=== PATIENT | female | born 1940 | race Caucasian/White ===

== ENCOUNTER 2017-04-18 19:13 | Observation (INO) | payer OTHER, MEDICARE ==
[2017-04-18 19:57] VITALS: BMI 30.1
--- NOTE | 2017-04-18 20:22 | PDOC ---
History of Present Illness - History of Present Illness Initial Comments: 04/18/17 20:23 Ms. Tolliver is a 76 yo female w/ pmh of urosepsis from obstructing stone, NIDDM , HTN, high cholesterol, on plavix (unknown reason) who presents post fall earlier today. Per patient she was sitting down in a chair while talking on her cell phone but unfortunately only half made it onto the seat. She slipped and fell backwards and onto her right side. Ms. Tolliver reports that as she fell down she hit the back of her head on a metal cabinet of some kind. She currently has pain at her head and on her sides with deep inspiration. The patient denies chest pain, shortness of breath, and dizziness. Denies fever , chills, nausea, vomit, diarrhea and constipation. Denies dysuria, frequency, urgency and hematuria. Allergies: Tetracyclines, Sulfa drugs <Jesús Orozco - Last Filed: 04/18/17 21:38> <Nusrat Sandy - Last Filed: 04/19/17 00:02> <Colleen Connell - Last Filed: 04/19/17 01:53> - General Chief Complaint: Injury Stated Complaint: FALL Time Seen by Provider: 04/18/17 20:22 Past History - Past Medical History Anemia: No Asthma: No Cancer: Yes (RIGHT PARTIAL BREAST MASECTOMY) Cardiac Disorders: No CVA: No COPD: No CHF: No Dementia: No Diabetes: Yes GI Disorders: No Disorders: No HTN: Yes Hypercholesterolemia: Yes Kidney Stones: Yes (s/p lithotripsy in 10/21) Liver Disease: No Seizures: No Thyroid Disease: No - Surgical History Abdominal Surgery: Yes Appendectomy: No Cardiac Surgery: No Cholecystectomy: No Lung Surgery: No Neurologic Surgery: No Orthopedic Surgery: No - Immunization History Immunization Up to Date: No - Suicide/Smoking/Psychosocial Hx Smoking History: Never smoked Have you smoked in the past 12 months: No Information on smoking cessation initiated: No Hx Alcohol Use: No Drug/Substance Use Hx: No Substance Use Type: None Hx Substance Use Treatment: No <Jesús Orozco - Last Filed: 04/18/17 21:38> <Nusrat Sandy - Last Filed: 04/19/17 00:02> <Colleen Connell - Last Filed: 04/19/17 01:53> - Past Medical History Allergies/Adverse Reactions: Allergies Allergy/AdvReac Type Severity Reaction Status Date / Time Tetracyclines Allergy Mild Hives Verified 04/18/17 19:52 Fish Containing Products Allergy Rash Verified 04/18/17 19:52 Sulfa (Sulfonamide Allergy Verified 04/18/17 19:52 Antibiotics) aspirin AdvReac "STOMACH Verified 04/18/17 19:52 BURNING" CLOVES Allergy Mild Hives Uncoded 04/18/17 19:52 Home Medications: Ambulatory Orders Clopidogrel Bisulfate [Clopidogrel] 75 mg PO DAILY 06/30/15 Fenofibric Acid [Trilipix -] 135 mg PO DAILY 06/30/15 Ferrous Sulfate [Feosol] 325 mg PO DAILY 06/30/15 Glimepiride 4 mg PO DAILY 06/30/15 Losartan Potassium [Cozaar -] 25 mg PO DAILY 06/30/15 Metoprolol Tartrate 25 mg PO BID 06/30/15 Ranitidine [Zantac -] 150 mg PO BID 06/30/15 Simvastatin [Zocor -] 40 mg PO DAILY 06/30/15 Sitagliptin Phosphate [Januvia -] 25 mg PO DAILY 06/30/15 Glimepiride [Amaryl -] 2 mg PO DAILY@1630 #30 tablet 07/04/15 Amoxicillin - [Amoxicillin 500mg Capsule -] 500 mg PO BID #10 capsule 03/24/17 Review of Systems - Review of Systems Comments:: 04/18/17 20:50 GENERAL/CONSTITUTIONAL: No fever or chills. No weakness. HEAD, EYES, EARS, NOSE AND THROAT: +Pain to back of head CARDIOVASCULAR: No chest pain or shortness of breath RESPIRATORY: +Current pain with deep inspiration and on left/right ribs GASTROINTESTINAL: No nausea, vomiting, diarrhea or constipation. GENITOURINARY: No dysuria, frequency, or change in urination. MUSCULOSKELETAL: No joint or muscle swelling or pain. No neck or back pain. SKIN: No rash NEUROLOGIC: No headache, vertigo, loss of consciousness, or change in strength/ sensation. ENDOCRINE: No increased thirst. No abnormal weight change HEMATOLOGIC/LYMPHATIC: No anemia, easy bleeding, or history of blood clots. ALLERGIC/IMMUNOLOGIC: No hives or skin allergy. <Jesús Orozco - Last Filed: 04/18/17 21:38> *Physical Exam - Vital Signs Last Vital Signs Temp Pulse Resp BP Pulse Ox 88 14 176/88 98 04/18/17 19:53 04/18/17 19:53 04/18/17 19:53 04/18/17 19:53 - Physical Exam Comments: 04/18/17 20:51 GENERAL: Awake, alert, and fully oriented, in no acute distress HEAD: +Traumatic laceration to back of head EYES: PERRLA, EOMI, sclera anicteric, conjunctiva clear ENT: Auricles normal inspection, hearing grossly normal, nares patent, oropharynx clear without exudates. Moist mucosa NECK: Normal ROM, supple, no lymphadenopathy, JVD, or masses LUNGS: +Lateral L/R ribs TTP. HEART: Regular rate and rhythm, normal S1 and S2, no murmurs, rubs or gallops, peripheral pulses normal and equal bilaterally. ABDOMEN: Soft, nontender, normoactive bowel sounds. No guarding, no rebound. No masses EXTREMITIES: Normal inspection, Normal range of motion, no edema. No clubbing or cyanosis. NEUROLOGICAL: Cranial nerves II through XII grossly intact. Normal speech, normal gait, no focal sensorimotor deficits SKIN: Warm, Dry, normal turgor, no rashes or lesions noted. <José AntonioaydeedeaJesús - Last Filed: 04/18/17 21:38> - Vital Signs Last Vital Signs Temp Pulse Resp BP Pulse Ox 88 14 176/88 98 04/18/17 19:53 04/18/17 19:53 04/18/17 19:53 04/18/17 19:53 <Nusrat Sandy - Last Filed: 04/19/17 00:02> - Vital Signs Last Vital Signs Temp Pulse Resp BP Pulse Ox 88 14 176/88 98 04/18/17 19:53 04/18/17 19:53 04/18/17 19:53 04/18/17 19:53 - Physical Exam Comments: 04/19/17 01:52 GENERAL: Well developed, well nourished. Awake and alert. No acute distress. HEENT: Occipital lobe 10 cm laceration - full thickness. Significant bleeding. Normocephalic, PERRLA, EOMI. No conjunctival pallor. Sclera are non-icteric. Moist mucous membranes. Oropharynx is clear. NECK: Supple. Full ROM. No JVD. Carotid pulses 2+ and symmetric, without bruits. No thyromegaly. No lymphadenopathy. CARDIOVASCULAR: Regular rate and rhythm. No murmurs, rubs, or gallops. Distal pulses are 2+ and symmetric. PULMONARY: No evidence of respiratory distress. Lungs clear to auscultation bilaterally. No wheezing, rales or rhonchi. ABDOMINAL: Soft. Non-tender. Non-distended. No rebound or guarding. No organomegaly. Normoactive bowel sounds. MUSCULOSKELETAL Normal range of motion at all joints. No bony deformities or tenderness. No CVA tenderness. EXTREMITIES: No cyanosis. No clubbing. No edema. No calf tenderness.NO defomities or tenderness SKIN: Occipital lobe 10 cm laceration - full thickness. Significant bleeding. Warm and dry. Normal capillary refill. No rashes. No jaundice. NEUROLOGICAL: No focal neuro deficits. Alert, awake, appropriate. Cranial nerves 2-12 intact. No deficits to light touch and temperature in face, upper extremities and lower extremities. No motor deficits in the in face, upper extremities and lower extremities. Normoreflexic in the upper and lower extremities. Normal speech. Toes are down-going bilaterally. Gait is normal without ataxia. PSYCHIATRIC: Cooperative. Good eye contact. Appropriate mood and affect. <Colleen Connell - Last Filed: 04/19/17 01:53> ED Treatment Course - LABORATORY CBC & Chemistry Diagram: 04/18/17 21:35 04/18/17 21:35 - ADDITIONAL ORDERS Additional order review: Laboratory Results 04/18/17 04/18/17 04/18/17 21:35 21:35 21:30 PT with INR 10.90 INR 0.96 D PTT (Actin FS) 32.9 Sodium 137 Potassium 4.3 Chloride 104 Carbon Dioxide 25 Anion Gap 8 BUN 33 H D Creatinine 1.1 H Creat Clearance w eGFR 48.55 Random Glucose 186 H D Calcium 8.9 Total Bilirubin 0.3 D AST 13 L D ALT 17 D Alkaline Phosphatase 92 Total Protein 8.0 Albumin 3.9 D Blood Type A POSITIVE Antibody Screen Negative 04/18/17 21:35 RBC 4.76 MCV 83.4 MCHC 33.1 RDW 14.4 MPV 8.9 Neutrophils % 74.2 D Lymphocytes % 17.4 D Monocytes % 5.2 Eosinophils % 2.6 Basophils % 0.6 - Medications Given in the ED: ED Medications Discontinued Medications Generic Name Dose Route Start Last Admin Trade Name Celeste PRN Reason Stop Dose Admin Ibuprofen 800 mg 04/18/17 20:36 04/18/17 21:34 Motrin - PO 04/18/17 20:37 800 mg ONCE ONE Administration <DuNusrat Meeta - Last Filed: 04/19/17 00:02> - LABORATORY CBC & Chemistry Diagram: 04/18/17 21:35 04/18/17 21:35 - ADDITIONAL ORDERS Additional order review: Laboratory Results 04/18/17 04/18/17 04/18/17 21:35 21:35 21:30 PT with INR 10.90 INR 0.96 D PTT (Actin FS) 32.9 Sodium 137 Potassium 4.3 Chloride 104 Carbon Dioxide 25 Anion Gap 8 BUN 33 H D Creatinine 1.1 H Creat Clearance w eGFR 48.55 Random Glucose 186 H D Calcium 8.9 Total Bilirubin 0.3 D AST 13 L D ALT 17 D Alkaline Phosphatase 92 Total Protein 8.0 Albumin 3.9 D Blood Type A POSITIVE Antibody Screen Negative 04/18/17 21:35 RBC 4.76 MCV 83.4 MCHC 33.1 RDW 14.4 MPV 8.9 Neutrophils % 74.2 D Lymphocytes % 17.4 D Monocytes % 5.2 Eosinophils % 2.6 Basophils % 0.6 - RADIOLOGY Radiograph Interpretation: 04/18/17 23:55 CT Head Reported by: Doug Napier Impression: No acute intracranial hemmorhage mass effect or midline shift. Moderate right parietal scalp soft tissue swelling and subcutaneous hematoma at the vertex and right parietal scalp skin laceration and introduced air bubbles. Mild non- specific periventricular predominant low density throughout the deep white matter is most likely due to mild small vessel ischemic white matter disease. - Medications Given in the ED: ED Medications Discontinued Medications Generic Name Dose Route Start Last Admin Trade Name Celeste PRN Reason Stop Dose Admin Ibuprofen 800 mg 04/18/17 20:36 04/18/17 21:34 Motrin - PO 04/18/17 20:37 800 mg ONCE ONE Administration <Colleen Connell - Last Filed: 04/19/17 01:53> Medical Decision Making - Medical Decision Making 04/18/17 20:52 Ms. Tolliver is a 76 yo female s/p fall with head injury earlier today. 04/18/17 21:[address] ordered to r/o acute bleed. Chest/Pelvis to r/o other fall sequelae. Patient signed out to Dr. Sandy for further care. <Jesús Orozco - Last Filed: 04/18/17 21:38> *DC/Admit/Observation/Transfer <Jesús Orozco - Last Filed: 04/18/17 21:38> - Discharge Dispostion Admit: Yes <Nusrat Sandy - Last Filed: 04/19/17 00:02> <Colleen Connell - Last Filed: 04/19/17 01:53> Diagnosis at time of Disposition: Fall Qualifiers: Encounter type: initial encounter Qualified Code(s): W19.XXXA - Unspecified fall, initial encounter Headache, post-traumatic, acute Qualifiers: Intractability: not intractable Qualified Code(s): G44.319 - Acute post- traumatic headache, not intractable Scalp laceration Qualifiers: Encounter type: initial encounter Qualified Code(s): S01.01XA - Laceration without foreign body of scalp, initial encounter
[2017-04-18] MEDS ORDERED: IBUPROFEN 400 MG TABLET (FP) PO ONE ×2 (20:36→21:19)
[2017-04-18 21:45] LABS: BASO % 0.6 % (0-2.0); EOS % 2.6 % (0-4.5); HEMATOCRIT 39.7 % (32.4-45.2); HEMOGLOBIN 13.1 GM/dL (10.7-15.3); LYMPH % 17.4 % (8-40); MCH 27.6 pg (25.7-33.7); MCHC 33.1 g/dl (32.0-36.0); MEAN CELL VOLUME 83.4 fl (80-96); MEAN PLT VOLUME 8.9 fl (7.5-11.1); MONO % 5.2 % (3.8-10.2); NEUT % 74.2 % (42.8-82.8); PLATELET COUNT 244 K/MM3 (134-434); RBC 4.76 M/mm3 (3.60-5.2); RDW 14.4 % (11.6-15.6); WHITE BLOOD COUNT 8.6 K/mm3 (4.0-10.0)
[2017-04-18 22:03] LABS: INR 0.96 (0.82-1.09); PROTHROMBIN TIME (PATIENT) 10.9 SEC (9.98-11.88)
[2017-04-18 22:06] LABS: ACTIVATED PTT 32.9 SECONDS (26.9-34.4)
[2017-04-18 22:15] LABS: ALBUMIN 3.9 g/dl (3.4-5.0); ANION GAP 8 (8-16); BLOOD UREA NITROGEN 33 mg/dL (7-18); CALCIUM 8.9 mg/dL (8.5-10.1); CHLORIDE 104 mmol/L (98-107); CO2 25 mmol/L (21-32); GLUCOSE,RANDOM 186 mg/dL (74-106); POTASSIUM 4.3 mmol/L (3.5-5.1); SGOT/AST 13 U/L (15-37); SGPT/ALT 17 U/L (12-78); SODIUM 137 mmol/L (136-145)
[2017-04-18 22:18] LABS: ALK PHOS 92 U/L (45-117); BILIRUBIN,TOTAL 0.3 mg/dL (0.2-1.0); CREATININE 1.1 mg/dL (0.55-1.02)
--- NOTE | 2017-04-19 00:06 | PDOC ---
Attending Attestation - Resident Resident Name: José AntonioaydeedeaJesús - ED Attending Attestation I have performed the following: I have examined & evaluated the patient, The case was reviewed & discussed with the resident, I agree w/resident's findings & plan, Exceptions are as noted - HPI HPI: 04/19/17 00:06 76 yo female fall off a chair at home and sustained 10 cm occiptal laceration.pt takes plavix . she was talking on her cellphone and did not sit fully on her chair and it moved and she fell backwards hitting the back of her head on a door handle 04/19/17 03:21 - Physicial Exam PE: 04/19/17 00:09 76 yo sustained head trauma with scalp laceration , she is on plavix 04/19/17 03:25 HEAD extensive occipital 10 cm laceration ,full thickness EYES mulu eomi no meredith signs ears no hemotympanum NECK no cervical vertebral tenderness appreciated cvs [id number] lungs cta b/l abd nontender ext no deformities neuro axox3,no gross focal neuro deficits - Medical Decision Making 04/19/17 03:27 IMP closed head trauma on anticoags admit for repeat ct scan head
--- NOTE | 2017-04-19 00:09 | PN ---
Teaching Attending Note Name of Resident: Fredy Potts ATTENDING PHYSICIAN STATEMENT I saw and evaluated the patient. I reviewed the resident's note and discussed the case with the resident. I agree with the resident's findings and plan as documented. SUBJECTIVE: 76 F with pmhx of NIDDM, HTN, HLD, breast ca, renal stones with prior urosepsis , on Plavix who presents post mechanical fall. She was going to sit down when she slipped and fell unto her right side and hit her head on a metal cabinet. Does note pain at site of head lac. OBJECTIVE: Physical: VS: Vital Signs Period Temp Pulse Resp BP Sys/Powers Pulse Ox Last 24 Hr 88 14 176/88 98 GEN:NAD, Resting in bed, AA0 X3 HEENT: 8 cm head laceration near occiput, PERRL, Throat withour erythema or exudates CARD: RRR S1, S2 RESP: CTAB ABD: BSx4, NTD to palpation EXT: - C/C/E CBCD WBC 8.6 K/mm3 (4.0-10.0) D 04/18/17 21:35 RBC 4.76 M/mm3 (3.60-5.2) 04/18/17 21:35 Hgb 13.1 GM/dL (10.7-15.3) D 04/18/17 21:35 Hct 39.7 % (32.4-45.2) D 04/18/17 21:35 MCV 83.4 fl (80-96) 04/18/17 21:35 MCHC 33.1 g/dl (32.0-36.0) 04/18/17 21:35 RDW 14.4 % (11.6-15.6) 04/18/17 21:35 Plt Count 244 K/MM3 (134-434) D 04/18/17 21:35 MPV 8.9 fl (7.5-11.1) 04/18/17 21:35 CMP Sodium 137 mmol/L (136-145) 04/18/17 21:35 Potassium 4.3 mmol/L (3.5-5.1) 04/18/17 21:35 Chloride 104 mmol/L (98-107) 04/18/17 21:35 Carbon Dioxide 25 mmol/L (21-32) 04/18/17 21:35 Anion Gap 8 (8-16) 04/18/17 21:35 BUN 33 mg/dL (7-18) H D 04/18/17 21:35 Creatinine 1.1 mg/dL (0.55-1.02) H 04/18/17 21:35 Creat Clearance w eGFR 48.55 (>60) 04/18/17 21:35 Random Glucose 186 mg/dL (74-106) H D 04/18/17 21:35 Calcium 8.9 mg/dL (8.5-10.1) 04/18/17 21:35 Total Bilirubin 0.3 mg/dL (0.2-1.0) D 04/18/17 21:35 AST 13 U/L (15-37) L D 04/18/17 21:35 ALT 17 U/L (12-78) D 04/18/17 21:35 Alkaline Phosphatase 92 U/L (45-117) 04/18/17 21:35 Total Protein 8.0 g/dl (6.4-8.2) 04/18/17 21:35 Albumin 3.9 g/dl (3.4-5.0) D 04/18/17 21:35 Home Medications Medication Instructions Recorded Clopidogrel Bisulfate [Clopidogrel] 75 mg PO DAILY 06/30/15 Fenofibric Acid [Trilipix -] 135 mg PO DAILY 06/30/15 Ferrous Sulfate [Feosol] 325 mg PO DAILY 06/30/15 Glimepiride 4 mg PO DAILY 06/30/15 Losartan Potassium [Cozaar -] 25 mg PO DAILY 06/30/15 Metoprolol Tartrate 25 mg PO BID 06/30/15 Ranitidine [Zantac -] 150 mg PO BID 06/30/15 Simvastatin [Zocor -] 40 mg PO DAILY 06/30/15 Sitagliptin Phosphate [Januvia -] 25 mg PO DAILY 06/30/15 Glimepiride [Amaryl -] 2 mg PO DAILY@1630 #30 tablet 07/04/15 Amoxicillin - [Amoxicillin 500mg 500 mg PO BID #10 capsule 03/24/17 Capsule -] 04/18/17 23:55 CT Head Reported by: Doug Napier Impression: No acute intracranial hemmorhage mass effect or midline shift. Moderate right parietal scalp soft tissue swelling adn subcutaneous hematoma at the vertex and right parietal scalp skin laceration and introduced air bubbles ASSESSMENT AND PLAN: 76 F with pmhx of NIDDM, HTN, HLD, breast ca, renal stones with prior urosepsis , on Plavix who presents post mechanical fall 1.) Mechanical Fall with Head Laceration - On Plavix - Repeat CT Head in 24 hrs- Hold Plavix until repeat - Coags - Type & Screen - Repeat CBC in AM 2.) DM - FS - RAISS 3.) HTN - C/W home meds 4.) CKD - Monitor CR - Avoid Neohrotoxins 5.) Dvt Ppx - SCDS Place in Obs
--- NOTE | 2017-04-19 00:16 | HP ---
CHIEF COMPLAINT: fall on her back PCP: HISTORY OF PRESENT ILLNESS: Ms. Tolliver is a 76 yo female w/ pmh of urosepsis from obstructing stone, NIDDM , HTN, high cholesterol, on plavix (pt allergic to ASA, placed on plavix for possible stroke prevention) who presents s/p mechanical fall earlier today. She reports she was at home and talking on cell phone; she slipped when attempting to sit on the chair and fell, hitting her head on the handle of the armoire. She states she had sudden severe headache post-fall that lasted for approximately 1 hr but resolved upon time of examination (1:00 AM). She reports back pain that limited her movements right after the fall but at time of examination, she denied feeling pain. She has hx of multiple falls, fracture of leg, fracture in arm as child, fracture of nose 3 weeks ago. She attributes this to "doing things too fast and I like to multitask". She denies light headness prior or post fall, dizziness, blurry vision, loss of consciousness, nausea, vomiting, chest pain. ER course was notable for: (1) CT head - negative for acute pathology (2)CXR - negative for acute pathology (3) EKG - NSR (4)BUN/Cr 33/1.1 (5) Hip/Pelvis X ray - pending reading Recent Travel:Denies PAST MEDICAL HISTORY: urosepsis from obstructing stone, NIDDM, HTN, high cholesterol, on plavix ( stroke prevention, allergic to ASA) PAST SURGICAL HISTORY: Lithotripsy 10/21, right partial mastectomy 2/2 breast cancer; x1 Social History: Smoking: denies Alcohol:denies Drugs: denies Family History: mother has hx of multiple cancers - breast ca with mets to brain ; father hx of some unspecified heart condition. Multiple family members have hx carcinoma. Allergies Tetracyclines Allergy (Mild, Verified 04/18/17 19:52) Hives Fish Containing Products Allergy (Verified 04/18/17 19:52) Rash Sulfa (Sulfonamide Antibiotics) Allergy (Verified 04/18/17 19:52) Altered mental status aspirin Adverse Reaction (Verified 04/18/17 19:52) "STOMACH BURNING" CLOVES Allergy (Mild, Uncoded 04/18/17 19:52) Hives HOME MEDICATIONS: Home Medications Medication Instructions Recorded Clopidogrel Bisulfate [Clopidogrel] 75 mg PO DAILY 06/30/15 Fenofibric Acid [Trilipix -] 135 mg PO DAILY 06/30/15 Ferrous Sulfate [Feosol] 325 mg PO DAILY 06/30/15 Glimepiride 4 mg PO DAILY 06/30/15 Losartan Potassium [Cozaar -] 25 mg PO DAILY 06/30/15 Metoprolol Tartrate 25 mg PO BID 06/30/15 Ranitidine [Zantac -] 150 mg PO BID 06/30/15 Simvastatin [Zocor -] 40 mg PO DAILY 06/30/15 Sitagliptin Phosphate [Januvia -] 25 mg PO DAILY 06/30/15 Glimepiride [Amaryl -] 2 mg PO DAILY@1630 #30 tablet 07/04/15 Amoxicillin - [Amoxicillin 500mg 500 mg PO BID #10 capsule 03/24/17 Capsule -] REVIEW OF SYSTEMS CONSTITUTIONAL: Absent: fever, chills, diaphoresis, generalized weakness, malaise, loss of appetite, weight change HEENT: Absent: rhinorrhea, nasal congestion, throat pain, throat swelling, difficulty swallowing, mouth swelling, ear pain, eye pain, visual changes CARDIOVASCULAR: Absent: chest pain, syncope, palpitations, irregular heart rate, lightheadedness , peripheral edema RESPIRATORY: Absent: cough, shortness of breath, dyspnea with exertion, orthopnea, wheezing, stridor, hemoptysis GASTROINTESTINAL: Absent: abdominal pain, abdominal distension, nausea, vomiting, diarrhea, constipation, melena, hematochezia GENITOURINARY: Absent: dysuria, frequency, urgency, hesitancy, hematuria, flank pain, genital pain MUSCULOSKELETAL: Absent: myalgia, arthralgia, joint swelling, back pain, neck pain SKIN: Absent: rash, itching, pallor HEMATOLOGIC/IMMUNOLOGIC: Absent: easy bleeding, easy bruising, lymphadenopathy, frequent infections ENDOCRINE: Absent: unexplained weight gain, unexplained weight loss, heat intolerance, cold intolerance NEUROLOGIC: Absent: headache, focal weakness or paresthesias, dizziness, unsteady gait, seizure, mental status changes, bladder or bowel incontinence PSYCHIATRIC: Absent: anxiety, depression, suicidal or homicidal ideation, hallucinations. PHYSICAL EXAMINATION Vital Signs - 24 hr 04/18/17 19:53 Pulse Rate 88 Respiratory 14 Rate Blood Pressure 176/88 O2 Sat by Pulse 98 Oximetry (%) GENERAL: Awake, alert, and fully oriented, in no acute distress. HEAD: Deep laceration 12 cm length noted on R parietal scalp with SQ hematoma. EYES: Pupils equal, round and reactive to light, extraocular movements intact, sclera anicteric, conjunctiva clear. No lid lag. EARS, NOSE, THROAT: Ears normal, nares patent, oropharynx clear without exudates. Moist mucous membranes. NECK: Normal range of motion, supple without lymphadenopathy, JVD, or masses. LUNGS: Breath sounds equal, clear to auscultation bilaterally. No wheezes, and no crackles. No accessory muscle use. HEART: Regular rate and rhythm, normal S1 and S2 without murmur, rub or gallop. ABDOMEN: Soft, nontender, not distended, normoactive bowel sounds, no guarding, no rebound, no masses. No hepatomegaly or splenomegaly. MUSCULOSKELETAL: Normal range of motion at all joints. No bony deformities or tenderness. No CVA tenderness. UPPER EXTREMITIES: 2+ pulses, warm, well-perfused. No cyanosis. No clubbing. No peripheral edema. LOWER EXTREMITIES: 2+ pulses, warm, well-perfused. No calf tenderness. No peripheral edema. NEUROLOGICAL: Cranial nerves II-XII intact. Normal speech. Normal gait. PSYCHIATRIC: Cooperative. Good eye contact. Appropriate mood and affect. SKIN: Warm, dry, normal turgor, no rashes or lesions noted, normal capillary refill. Laboratory Results - last 24 hr 04/18/17 04/18/17 04/18/17 21:30 21:35 21:35 WBC 8.6 D RBC 4.76 Hgb 13.1 D Hct 39.7 D MCV 83.4 MCH 27.6 MCHC 33.1 RDW 14.4 Plt Count 244 D MPV 8.9 Neutrophils % 74.2 D Lymphocytes % 17.4 D Monocytes % 5.2 Eosinophils % 2.6 Basophils % 0.6 PT with INR 10.90 INR 0.96 D PTT (Actin FS) 32.9 Sodium 137 Potassium 4.3 Chloride 104 Carbon Dioxide 25 Anion Gap 8 BUN 33 H D Creatinine 1.1 H Creat Clearance w eGFR 48.55 Random Glucose 186 H D Calcium 8.9 Total Bilirubin 0.3 D AST 13 L D ALT 17 D Alkaline Phosphatase 92 Total Protein 8.0 Albumin 3.9 D Blood Type Antibody Screen 04/18/17 21:35 WBC RBC Hgb Hct MCV MCH MCHC RDW Plt Count MPV Neutrophils % Lymphocytes % Monocytes % Eosinophils % Basophils % PT with INR INR PTT (Actin FS) Sodium Potassium Chloride Carbon Dioxide Anion Gap BUN Creatinine Creat Clearance w eGFR Random Glucose Calcium Total Bilirubin AST ALT Alkaline Phosphatase Total Protein Albumin Blood Type A POSITIVE Antibody Screen Negative CBC, BMP 04/18/17 21:35 04/18/17 21:35 CT Head : Impression: No acute intracranial hemmorhage mass effect or midline shift. Moderate right parietal scalp soft tissue swelling and subcutaneous hematoma at the vertex and right parietal scalp skin laceration and introduced air bubbles. ASSESSMENT/PLAN: Ms. Tolliver is a 76 yo female w/ pmh of urosepsis from obstructing stone, NIDDM , HTN, high cholesterol, on plavix (unknown reason) who presents post fall earlier today. # head trauma with scalp laceration s/p mechanical fall * Head CT - negative intracranial pathology * repeat CT scan in 24 hrs * Hold Clopidogrel * IV fluids NS 1000mls @100cc/hr * ibuprofen PRN pain * type and screen, PT/PTT ordered * stitches - done in ED; monitor for bleeding # DEBBY * Likely pre renal from low oral intake * IV fluids NS 1000mls @100cc/hr * Urine lytes * Avoid nephrotoxic agents * Trend BUN /cr # NIDDM * Hold home meds * ISS * BGM ACHS * Diabetic diet # HTN * continue home meds * metoprolol 25 mg BID * elevated BP on admission likely 2/2 pain # HLD : * continue home meds Lipitor 40 po daily # FEN * fluids NS 1000mls @100cc/hr * electrolytes: DEBBY on admission; monitor for resolution * Nutrition: Diabetic low Na diet # Proph * DVT: SCDS Both legs # Admit * obs * fall precautions * full code Visit type - Emergency Visit Emergency Visit: Yes ED Registration Date: 04/19/17 Care time: The patient presented to the Emergency Department on the above date and was hospitalized for further evaluation of their emergent condition. - New Patient This patient is new to me today: Yes Date on this admission: 04/19/17 - Critical Care Critical Care patient: No
[2017-04-19] MEDS ORDERED: LIDOCAINE HCL 2% (20ML MULTI-DOSE VIAL) NR ONE ×2 (01:10→01:28)
[2017-04-19] MEDS ORDERED: ACETAMINOPHEN 325 MG TABLET (FP) PO PRN (01:38)
[2017-04-19] MEDS ORDERED: DIPHTH,PERTUSS(ACELL),TET 0.5 ML DISP.SYRIN IM ONE (01:49)
[2017-04-19] MEDS ORDERED: CEFAZOLIN 1 GM in DEXTROSE 5%-WATER - 50 ML IVPB ONE (01:51)
--- NOTE | 2017-04-19 01:55 | PDOC ---
Suture Removal/Wound Check HPI - History of Present Illness Chief Complaint: Injury Stated Complaint: FALL Time Seen by Provider: 04/18/17 20:22 Past History - Past Medical History Allergies/Adverse Reactions: Allergies Allergy/AdvReac Type Severity Reaction Status Date / Time Tetracyclines Allergy Mild Hives Verified 04/18/17 19:52 Fish Containing Products Allergy Rash Verified 04/18/17 19:52 Sulfa (Sulfonamide Allergy Verified 04/18/17 19:52 Antibiotics) aspirin AdvReac "STOMACH Verified 04/18/17 19:52 BURNING" CLOVES Allergy Mild Hives Uncoded 04/18/17 19:52 Home Medications: Ambulatory Orders Clopidogrel Bisulfate [Clopidogrel] 75 mg PO DAILY 06/30/15 Fenofibric Acid [Trilipix -] 135 mg PO DAILY 06/30/15 Ferrous Sulfate [Feosol] 325 mg PO DAILY 06/30/15 Glimepiride 4 mg PO DAILY 06/30/15 Losartan Potassium [Cozaar -] 25 mg PO DAILY 06/30/15 Metoprolol Tartrate 25 mg PO BID 06/30/15 Ranitidine [Zantac -] 150 mg PO BID 06/30/15 Simvastatin [Zocor -] 40 mg PO DAILY 06/30/15 Sitagliptin Phosphate [Januvia -] 25 mg PO DAILY 06/30/15 Glimepiride [Amaryl -] 2 mg PO DAILY@1630 #30 tablet 07/04/15 Amoxicillin - [Amoxicillin 500mg Capsule -] 500 mg PO BID #10 capsule 03/24/17 Anemia: No Asthma: No Cancer: Yes (RIGHT PARTIAL BREAST MASECTOMY) Cardiac Disorders: No CVA: No COPD: No CHF: No DVT: No Dementia: No Diabetes: Yes Dialysis: No GI Disorders: No Disorders: No HTN: Yes Hypercholesterolemia: Yes Kidney Stones: Yes (s/p lithotripsy in 10/21) Liver Disease: No Psychiatric Problems: No Seizures: No Thyroid Disease: No Lung CA: No Other medical history: Right Breast CA - Surgical History Abdominal Surgery: Yes Appendectomy: No Cardiac Surgery: No Cholecystectomy: No Lung Surgery: No Neurologic Surgery: No Orthopedic Surgery: No - Immunization History Immunization Up to Date: No - Suicide/Smoking/Psychosocial Hx Smoking History: Never smoked Have you smoked in the past 12 months: No Information on smoking cessation initiated: No Hx Alcohol Use: No Drug/Substance Use Hx: No Substance Use Type: None Hx Substance Use Treatment: No Procedures - Laceration/Wound Repair Occipital Wound Length: 7.6 to 12.5 cm Wound Explored: no foreign body present Wound's Depth, Shape: into muscle, flap, contused tissue Irrigated w/ Saline: Yes Betadine Prep: No Anesthesia: 1% Lidocaine (12) Amount of Anesthetic (ccs): 12 Wound Debrided: minimal Wound Repaired With: Sutures Suture Size/Type: 3:0, nylon Number of Sutures: 14 Sterile Dressing Applied: No Splint Applied: No Sling Applied: No *DC/Admit/Observation/Transfer Diagnosis at time of Disposition: Fall Qualifiers: Encounter type: initial encounter Qualified Code(s): W19.XXXA - Unspecified fall, initial encounter Headache, post-traumatic, acute Qualifiers: Intractability: not intractable Qualified Code(s): G44.319 - Acute post- traumatic headache, not intractable Scalp laceration Qualifiers: Encounter type: initial encounter Qualified Code(s): S01.01XA - Laceration without foreign body of scalp, initial encounter - Discharge Dispostion Decision to Admit order Date/Time: Decision to Admit Order Category Date Time Status Decision to Admit to Hospital Routine Admission 04/19/17 00:04 Active - Referrals - Patient Instructions - Post Discharge Activity
[2017-04-19] MEDS ORDERED: CEFAZOLIN 1 GM/D5W 1 GM/50 ML BAG ONE (02:09)
[2017-04-19] MEDS: SODIUM CHLORIDE 1,000 ML IV SCH (02:29)
[2017-04-19] MEDS: METOPROLOL TARTRATE 25 MG TABLET (FP) PO SCH ×3 (02:29→23:26)
[2017-04-19] MEDS: RANITIDINE HCL 150 MG TABLET (FP) PO SCH ×3 (02:29→23:26)
[2017-04-19] MEDS ORDERED: BACITRACIN 0.9 GM PACKET ONE (03:52)
[2017-04-19] MEDS: INSULIN SLIDING SCALE (NOVOLOG) 1 VIAL SQ SCH ×5 (09:02→23:36)
[2017-04-19] MEDS ORDERED: INSULIN (NOVOLOG) ASPART 100 UNITS/ML 10ML VIAL ONE ×2 (09:04→23:29)
--- NOTE | 2017-04-19 09:35 | EKG ---
Test Reason : Blood Pressure : / mmHG Vent. Rate : 094 BPM Atrial Rate : 094 BPM P-R Int : 194 ms QRS Dur : 082 ms QT Int : 352 ms P-R-T Axes : 067 -16 063 degrees QTc Int : 440 ms NORMAL SINUS RHYTHM POSSIBLE LEFT ATRIAL ENLARGEMENT BORDERLINE ECG WHEN COMPARED WITH ECG OF 30-JUN-2015 17:25, PREMATURE VENTRICULAR COMPLEXES ARE NO LONGER PRESENT Confirmed by INGE MARISCAL, SHARIFA ([id number]) on 04/19/2017 9:34:41 AM Referred By: Confirmed By:SHARIFA ALCAZAR MD
[2017-04-19 09:56] LABS: BASO % 0.4 % (0-2.0); EOS % 2.6 % (0-4.5); HEMATOCRIT 36.9 % (32.4-45.2); HEMOGLOBIN 11.9 GM/dL (10.7-15.3); LYMPH % 15.1 % (8-40); MCHC 32.2 g/dl (32.0-36.0); MEAN CELL VOLUME 83.8 fl (80-96); MEAN PLT VOLUME 8.5 fl (7.5-11.1); MONO % 7.1 % (3.8-10.2); NEUT % 74.8 % (42.8-82.8); PLATELET COUNT 198 K/MM3 (134-434); RBC 4.41 M/mm3 (3.60-5.2); RDW 14.4 % (11.6-15.6); WHITE BLOOD COUNT 8.4 K/mm3 (4.0-10.0)
[2017-04-19 10:16] LABS: ALBUMIN 3.5 g/dl (3.4-5.0); ALK PHOS 84 U/L (45-117); ANION GAP 8 (8-16); BILIRUBIN,TOTAL 0.4 mg/dL (0.2-1.0); BLOOD UREA NITROGEN 33 mg/dL (7-18); CALCIUM 8.7 mg/dL (8.5-10.1); CHLORIDE 105 mmol/L (98-107); CO2 24 mmol/L (21-32); CREATININE 1.3 mg/dL (0.55-1.02); GLUCOSE,RANDOM 265 mg/dL (74-106); POTASSIUM 4.5 mmol/L (3.5-5.1); SGOT/AST 7 U/L (15-37); SGPT/ALT 14 U/L (12-78); SODIUM 137 mmol/L (136-145); TOT PROT 7.2 g/dl (6.4-8.2)
[2017-04-19 10:20] LABS: INR 1.02 (0.82-1.09); PROTHROMBIN TIME (PATIENT) 11.5 SEC (9.98-11.88)
[2017-04-19 10:24] LABS: ACTIVATED PTT 30.5 SECONDS (26.9-34.4)
--- NOTE | 2017-04-19 10:28 | PN ---
Progress Note, Physician Chief Complaint: Ms Tolliver says she is feeling better today. Still with some right sided chest wall pain when moving. No sob or n/v. - Current Medication List Current Medications: Active Medications Acetaminophen (Tylenol -) 650 mg PO Q6H PRN PRN Reason: PAIN Atorvastatin Calcium (Lipitor -) 20 mg PO HS [facility] Fenofibric Acid (Trilipix -) 135 mg PO DAILY [facility] Ferrous Sulfate (Feosol -) 325 mg PO DAILY [facility] Sodium Chloride (Normal Saline -) 1,000 mls @ 100 mls/hr IV ASDIR [facility] Last Admin: 04/19/17 02:29 Dose: 100 mls/hr Insulin Aspart (Novolog Vial Sliding Scale -) 1 vial SQ ACHS [facility] PRN Reason: Protocol Last Admin: 04/19/17 09:09 Dose: 2 units Losartan Potassium (Cozaar -) 25 mg PO DAILY [facility] Metoprolol Tartrate (Lopressor -) 25 mg PO BID [facility] Last Admin: 04/19/17 02:29 Dose: 25 mg Ranitidine HCl (Zantac -) 150 mg PO BID [facility] Last Admin: 04/19/17 02:29 Dose: 150 mg - Objective Vital Signs: Vital Signs Temperature 36.9 C 04/19/17 06:58 Pulse Rate 68 04/19/17 06:58 Respiratory Rate 18 04/19/17 06:58 Blood Pressure 159/86 04/19/17 06:58 O2 Sat by Pulse Oximetry (%) 99 04/19/17 06:58 Constitutional: Yes: Well Nourished, No Distress, Calm Cardiovascular: Yes: Regular Rate and Rhythm. No: Gallop, Murmur, Rub Respiratory: Yes: Regular, CTA Bilaterally. No: Rales, Rhonchi, Wheezes Gastrointestinal: Yes: Normal Bowel Sounds, Soft. No: Distention, Tenderness Extremities: Yes: WNL Edema: No Labs: CBC, BMP 04/19/17 09:46 04/19/17 09:46 INR, PTT INR 0.96 (0.82-1.09) D 04/18/17 21:30 Problem List - Problems (1) Head trauma Assessment/Plan: -secondary to fall -pain resolved -repeat head CT [address] -if no bleed, discharge in am Code(s): S09.90XA - UNSPECIFIED INJURY OF HEAD, INITIAL ENCOUNTER Qualifiers: Encounter type: initial encounter Qualified Code(s): S09.90XA - Unspecified injury of head, initial encounter (2) Fall Assessment/Plan: -mechanical -PT consult Code(s): W19.XXXA - UNSPECIFIED FALL, INITIAL ENCOUNTER Qualifiers: Encounter type: initial encounter Qualified Code(s): W19.XXXA - Unspecified fall, initial encounter (3) Diabetes mellitus Assessment/Plan: -continue home regimen Code(s): E11.9 - TYPE 2 DIABETES MELLITUS WITHOUT COMPLICATIONS (4) Hyperlipidemia Assessment/Plan: -continue fenofibrate Code(s): E78.5 - HYPERLIPIDEMIA, UNSPECIFIED (5) Hypertension Assessment/Plan: -continue lopressor and cozaar Code(s): I10 - ESSENTIAL (PRIMARY) HYPERTENSION (6) CKD (chronic kidney disease) Assessment/Plan: -chronic and improved from previous admissions -monitor -no need to hold nephrotoxic agents Code(s): N18.9 - CHRONIC KIDNEY DISEASE, UNSPECIFIED
[2017-04-19] MEDS: FERROUS SO4 325 MG TABLET (FP) PO SCH (10:41)
[2017-04-19] MEDS: LOSARTAN POTASSIUM 25 MG TABLET PO SCH (10:41)
[2017-04-19] MEDS: FENOFIBRIC ACID 135 MG CAP PO SCH (10:42)
[2017-04-19] MEDS ORDERED: ACETAMINOPHEN 325 MG TABLET (FP) ONE (19:59)
[2017-04-19] MEDS ORDERED: ATORVASTATIN CA 20 MG TABLET (FP) PO SCH (22:00)
[2017-04-19] MEDS ORDERED: METOPROLOL TARTRATE 25 MG TABLET (FP) ONE (23:16)
[2017-04-19] MEDS ORDERED: RANITIDINE HCL 150 MG TABLET (FP) ONE (23:16)
[2017-04-19] MEDS ORDERED: ATORVASTATIN CA 40 MG TABLET (FP) ONE (23:17)
[2017-04-20] MEDS: SODIUM CHLORIDE 1,000 ML IV SCH (03:07)
[2017-04-20] MEDS: INSULIN SLIDING SCALE (NOVOLOG) 1 VIAL SQ SCH ×2 (06:20→11:41)
[2017-04-20] MEDS ORDERED: INSULIN (NOVOLOG) ASPART 100 UNITS/ML 10ML VIAL ONE (06:21)
[2017-04-20 07:00] LABS: BASO % 0.5 % (0-2.0); EOS % 3.7 % (0-4.5); HEMATOCRIT 33.9 % (32.4-45.2); HEMOGLOBIN 11.3 GM/dL (10.7-15.3); LYMPH % 28.2 % (8-40); MCH 27.6 pg (25.7-33.7); MCHC 33.3 g/dl (32.0-36.0); MEAN CELL VOLUME 82.9 fl (80-96); MONO % 7.9 % (3.8-10.2); NEUT % 59.7 % (42.8-82.8); PLATELET COUNT 205 K/MM3 (134-434); RDW 14.1 % (11.6-15.6)
[2017-04-20 07:04] VITALS: BP 149/92; PULSE 87; TEMP 97.9
[2017-04-20 07:53] LABS: ANION GAP 9 (8-16); BLOOD UREA NITROGEN 37 mg/dL (7-18); CALCIUM 7.9 mg/dL (8.5-10.1); CHLORIDE 108 mmol/L (98-107); CO2 21 mmol/L (21-32); GLUCOSE,RANDOM 196 mg/dL (74-106); MAGNESIUM 1.9 mg/dL (1.8-2.4); POTASSIUM 3.9 mmol/L (3.5-5.1); SODIUM 138 mmol/L (136-145)
[2017-04-20 07:55] LABS: PHOSPHOROUS 3.9 mg/dL (2.5-4.9)
[2017-04-20] MEDS: RANITIDINE HCL 150 MG TABLET (FP) PO SCH (09:45)
[2017-04-20] MEDS: FERROUS SO4 325 MG TABLET (FP) PO SCH (09:45)
[2017-04-20] MEDS: FENOFIBRIC ACID 135 MG CAP PO SCH (09:45)
[2017-04-20] MEDS: LOSARTAN POTASSIUM 25 MG TABLET PO SCH (09:46)
[2017-04-20] MEDS: METOPROLOL TARTRATE 25 MG TABLET (FP) PO SCH (09:47)
--- NOTE | 2017-04-20 10:27 | DS ---
Physical Examination Vital Signs: Vital Signs Temperature 36.6 C 04/20/17 07:03 Pulse Rate 87 04/20/17 07:03 Respiratory Rate 18 04/19/17 21:43 Blood Pressure 149/92 04/20/17 07:03 O2 Sat by Pulse Oximetry (%) 96 04/20/17 07:03 Labs: CBC, BMP 04/20/17 05:55 04/20/17 05:58 Discharge Summary Reason For Visit: ACUTE POST TRAUMATIC HEADACHE FALL Current Active Problems CKD (chronic kidney disease) (Acute) Fall (Acute) Head trauma (Acute) Headache, post-traumatic, acute (Acute) Scalp laceration (Acute) Condition: Good - Instructions Diet, Activity, Other Instructions: resume previous diet and activity. Follow up with Dr Xie within 7 days Referrals: Jhonny Xie MD [Primary Care Provider] - Disposition: HOME - Home Medications Comprehensive Discharge Medication List: Ambulatory Orders Clopidogrel Bisulfate [Clopidogrel] 75 mg PO DAILY 06/30/15 Ferrous Sulfate [Feosol] 325 mg PO DAILY 06/30/15 Glimepiride 4 mg PO AM 06/30/15 Losartan Potassium [Cozaar -] 25 mg PO DAILY 06/30/15 Metoprolol Tartrate 25 mg PO BID 06/30/15 Ranitidine [Zantac -] 150 mg PO BID 06/30/15 Simvastatin [Zocor -] 40 mg PO DAILY 06/30/15 Sitagliptin Phosphate [Januvia -] 25 mg PO DAILY 06/30/15 Glimepiride [Amaryl -] 2 mg PO DAILY@1630 #30 tablet 07/04/15 Gabapentin 100 mg PO BID 04/19/17 Metformin HCl [Metformin HCl ER] 1,000 mg PO BID 04/19/17 Nabumetone 750 mg PO BID 04/19/17
== END 2017-04-20 12:53 | disposition home or self-care (01) ==
LOC: JER 19:13 → JERBED 04-19 00:04 → UNDOADMOB 04-19 01:04 → JERBED 04-19 01:04
PROVIDERS: ADMIT Internal Medicine; ATTEND Internal Medicine
PROC: 0KQ00ZZ Repair Head Muscle, Open Approach (ICD-10-PCS; principal; 2017-04-19)
PROC: 3E03329 Introduction of Other Anti-infective into Peripheral Vein, Percutaneous Approach (ICD-10-PCS; 2017-04-19)
PROC: 3E0337Z Introduction of Electrolytic and Water Balance Substance into Peripheral Vein, Percutaneous Approach (ICD-10-PCS; 2017-04-19)
PROC: 3E013VG Introduction of Insulin into Subcutaneous Tissue, Percutaneous Approach (ICD-10-PCS; 2017-04-19)
PROC: 3E0234Z Introduction of Serum, Toxoid and Vaccine into Muscle, Percutaneous Approach (ICD-10-PCS; 2017-04-19)
DX: G44.319 Acute post-traumatic headache, not intractable (principal); S09.90XA Unspecified injury of head, initial encounter; S01.01XA Laceration without foreign body of scalp, initial encounter; I12.9 Hypertensive chronic kidney disease with stage 1 through stage 4 chronic kidney disease, or unspecified chronic kidney disease; E11.22 Type 2 diabetes mellitus with diabetic chronic kidney disease; N18.9 Chronic kidney disease, unspecified; E78.5 Hyperlipidemia, unspecified; N17.9 Acute kidney failure, unspecified; Z79.01 Long term (current) use of anticoagulants; Z90.11 Acquired absence of right breast and nipple; Z85.3 Personal history of malignant neoplasm of breast; Z91.013 Allergy to seafood; Z88.6 Allergy status to analgesic agent; Z88.2 Allergy status to sulfonamides; Z88.1 Allergy status to other antibiotic agents; Z79.84 Long term (current) use of oral hypoglycemic drugs; Z87.442 Personal history of urinary calculi; W07.XXXA Fall from chair, initial encounter; Y93.89 Activity, other specified; Y92.009 Unspecified place in unspecified non-institutional (private) residence as the place of occurrence of the external cause
CPT/HCPCS: 13121; 36415; 70450-TC; 71045-TC; 72070-TC; 72100-TC; 72170-TC; 80048; 80053; 82962; 83735; 84100; 85025; 85610; 85730; 86850; 86900; 86901; 90471; 90715; 93005; 93010; 96365; 96372; 99285-25; G0378

== ENCOUNTER 2018-10-25 12:53 | Emergency (ER) | payer OTHER, MEDICARE ==
[2018-10-25 13:09] VITALS: BP 135/76; PULSE 82; TEMP 98.4; BMI 29.2
[2018-10-25] MEDS ORDERED: ACETAMINOPHEN 325 MG TABLET (FP) PO ONE (14:01)
[2018-10-25] MEDS ORDERED: METHOCARBAMOL 500 MG TABLET PO ONE (14:01)
[2018-10-25] MEDS ORDERED: ACETAMINOPHEN 325 MG TABLET (FP) ONE (14:05)
[2018-10-25] MEDS ORDERED: METHOCARBAMOL 500 MG TABLET ONE (14:05)
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
== END 2018-10-25 14:41 | disposition home or self-care (01) ==
LOC: JERFT 12:53
DX: S43.402A Unspecified sprain of left shoulder joint, initial encounter (principal); Y04.2XXA Assault by strike against or bumped into by another person, initial encounter; Y93.89 Activity, other specified; Y92.018 Other place in single-family (private) house as the place of occurrence of the external cause; Y99.8 Other external cause status; Y07.499 Other family member, perpetrator of maltreatment and neglect; I10 Essential (primary) hypertension; E78.00 Pure hypercholesterolemia, unspecified; E11.9 Type 2 diabetes mellitus without complications; Z79.4 Long term (current) use of insulin; Z85.3 Personal history of malignant neoplasm of breast; Z79.01 Long term (current) use of anticoagulants; Z90.11 Acquired absence of right breast and nipple; Z88.2 Allergy status to sulfonamides; Z91.013 Allergy to seafood
CPT/HCPCS: 73030-TC-LT-FY; 99282-25

== ENCOUNTER 2019-03-26 11:13 | Emergency (ER) | payer OTHER, MEDICARE ==
[2019-03-26 11:27] VITALS: PULSE 99; TEMP 98; BMI 28.3
--- NOTE | 2019-03-26 11:36 | PDOC ---
History of Present Illness <Ria Louis - Last Filed: 03/26/19 15:55> - History of Present Illness Initial Comments: 03/26/19 11:37 Ms. Tolliver is a 76 yo female w/ pmh of urosepsis from obstructing stone, NIDDM , HTN, high cholesterol, on plavix (unknown reason) who presents after a fall that occurred today. The patient was walking to her car when she slipped on ice and she backward onto her buttocks and hit the back of her head. No LOC. The patient was able to walk slowly and drove herself to the ED. She reports significant pain on the R hip and buttocks and the back of the head. She denies any other complaints. ROS GENERAL/CONSTITUTIONAL: No fever or chills. No weakness. HEAD, EYES, EARS, NOSE AND THROAT: No change in vision. No ear pain or discharge. No sore throat. CARDIOVASCULAR: No chest pain or shortness of breath RESPIRATORY: No cough, wheezing, or hemoptysis. GASTROINTESTINAL: No nausea, vomiting, diarrhea or constipation. GENITOURINARY: No dysuria, frequency, or change in urination. MUSCULOSKELETAL: + joint or muscle swelling or pain. No neck, + back pain. SKIN: No rash NEUROLOGIC: + headache, No vertigo, loss of consciousness, or change in strength /sensation. PE GENERAL: Awake, alert, and fully oriented, in no acute distress HEAD: + hematoma to the occipital scalp EYES: PERRLA, EOMI, sclera anicteric, conjunctiva clear ENT: oropharynx clear without exudates. Moist mucosa NECK: Normal ROM, supple LUNGS: No distress, speaks full sentences, clear to auscultation bilaterally HEART: Regular rate and rhythm, normal S1 and S2, no murmurs, rubs or gallops, peripheral pulses normal and equal bilaterally. ABDOMEN: Soft, nontender. No guarding, no rebound. No masses EXTREMITIES : Normal inspection, Normal range of motion, no edema. No clubbing or cyanosis. + R 5 digit small abrasion NEUROLOGICAL: Cranial nerves II through XII grossly intact. Normal speech. no focal sensorimotor deficits SKIN: Warm, Dry, normal turgor, no rashes or lesions noted MDM DDX including but not limited to: r/o fx vs dislocation r/o intracranial bleed ED Course: Head CT and C spine Ct - neg XR of hip and lumbar spine - neg urine w/ + uti will treat with keflex Patient feels improved on reassessment able to ambulate without difficulty agrees to f/u with pcp rx for lidocaine patches and otc pain control strict return precautions stable for discharge Daxa Sandoval PGY2 Emergency Medicine <Daxa Sandoval - Last Filed: 03/26/19 18:13> - General Chief Complaint: Injury Stated Complaint: FALL Time Seen by Provider: 03/26/19 11:35 Past History <Ria Louis - Last Filed: 03/26/19 15:55> - Past Medical History Anemia: No Asthma: No Cancer: Yes (RIGHT PARTIAL BREAST MASECTOMY) Cardiac Disorders: No CVA: No COPD: No CHF: No DVT: No Dementia: No Diabetes: Yes Dialysis: No GI Disorders: No Disorders: No HTN: Yes Hypercholesterolemia: Yes Kidney Stones: Yes (s/p lithotripsy in 10/21) Liver Disease: No Psychiatric Problems: No Seizures: No Thyroid Disease: No Lung CA: No - Surgical History Abdominal Surgery: Yes Appendectomy: No Cardiac Surgery: No Cholecystectomy: No Lung Surgery: No Neurologic Surgery: No Orthopedic Surgery: No - Immunization History Immunization Up to Date: No - Psycho Social/Smoking Cessation Hx Smoking History: Never smoked Have you smoked in the past 12 months: No Hx Alcohol Use: No Drug/Substance Use Hx: No Substance Use Type: None Hx Substance Use Treatment: No <Daxa Sandoval - Last Filed: 03/26/19 18:13> - Past Medical History Allergies/Adverse Reactions: Allergies Allergy/AdvReac Type Severity Reaction Status Date / Time Tetracyclines Allergy Mild Hives Verified 03/26/19 11:27 Fish Containing Products Allergy Rash Verified 03/26/19 11:27 Sulfa (Sulfonamide Allergy Verified 03/26/19 11:27 Antibiotics) aspirin AdvReac "STOMACH Verified 03/26/19 11:27 BURNING" CLOVES Allergy Mild Hives Uncoded 03/26/19 11:27 Home Medications: Ambulatory Orders Clopidogrel Bisulfate [Clopidogrel] 75 mg PO DAILY 06/30/15 Ferrous Sulfate [Feosol] 325 mg PO DAILY 06/30/15 Glimepiride 4 mg PO AM 06/30/15 Losartan Potassium [Cozaar -] 25 mg PO DAILY 06/30/15 Metoprolol Tartrate 25 mg PO BID 06/30/15 Ranitidine [Zantac -] 150 mg PO BID 06/30/15 Simvastatin [Zocor -] 40 mg PO DAILY 06/30/15 Sitagliptin Phosphate [Januvia -] 25 mg PO DAILY 06/30/15 Glimepiride [Amaryl -] 2 mg PO DAILY@1630 #30 tablet 07/04/15 Gabapentin 100 mg PO BID 04/19/17 Nabumetone 750 mg PO BID 04/19/17 metFORMIN HCL [Metformin ER Osmotic] 1,000 mg PO BID 04/19/17 Diclofenac Sodium [Voltaren] 1 applic TP Q8H PRN #1 tube 10/25/18 Methocarbamol [Robaxin -] 500 mg PO BID PRN #14 tablet 10/25/18 Cephalexin Monohydrate [Keflex -] 500 mg PO BID #7 capsule 03/26/19 Lidocaine 5% Patch [Lidoderm -] 1 patch TP DAILY #7 patch 03/26/19 Lidocaine 5% Patch [Lidoderm Patch -] 1 patch TP DAILY PRN #7 patch 03/26/19 *Physical Exam - Vital Signs Last Vital Signs Temp Pulse Resp BP Pulse Ox 98 F 99 H 18 156/84 100 03/26/19 11:23 03/26/19 11:23 03/26/19 11:23 03/26/19 11:23 03/26/19 11:23 <Ria Louis - Last Filed: 03/26/19 15:55> - Vital Signs Last Vital Signs Temp Pulse Resp BP Pulse Ox 98 F 99 H 18 156/84 100 03/26/19 11:23 03/26/19 11:23 03/26/19 11:23 03/26/19 11:23 03/26/19 11:23 <Daxa Sandoval - Last Filed: 03/26/19 18:13> ED Treatment Course - RADIOLOGY Radiology Studies Ordered: Category Date Time Status SPINE-LUMBAR SACRAL [RAD] Stat Radiology 03/26/19 12:39 Taken - Medications Given in the ED: ED Medications Discontinued Medications Generic Name Dose Route Start Last Admin Trade Name Freq PRN Reason Stop Dose Admin Acetaminophen 1,000 mg 03/26/19 11:54 03/26/19 12:15 Tylenol - PO 03/26/19 11:55 1,000 mg ONCE ONE Administration Diphtheria/Tetanus/Acell Pertussis 0.5 ml 03/26/19 11:54 03/26/19 12:15 Boostrix - IM 03/26/19 11:55 Not Given .ONCE ONE Lidocaine 1 patch 03/26/19 11:55 03/26/19 12:15 Lidoderm Patch - TP 03/26/19 11:56 1 patch ONCE ONE Administration <Ria Louis - Last Filed: 03/26/19 15:55> Discharge - Discharge Information Problems reviewed: Yes - Admission No <Ria Louis - Last Filed: 03/26/19 15:55> - Discharge Information Problems reviewed: Yes - Admission No <YuniorNirali coronadoie - Last Filed: 03/26/19 18:13> - Discharge Information Clinical Impression/Diagnosis: Bilateral buttock pain, UTI (urinary tract infection) Hematoma of scalp Qualifiers: Encounter type: initial encounter Qualified Code(s): S00.03XA - Contusion of scalp, initial encounter Fall Qualifiers: Encounter type: initial encounter Qualified Code(s): W19.XXXA - Unspecified fall, initial encounter Lumbar sprain Qualifiers: Encounter type: initial encounter Qualified Code(s): S33.5XXA - Sprain of ligaments of lumbar spine, initial encounter Condition: Improved Disposition: HOME - Additional Discharge Information Prescriptions: Cephalexin Monohydrate [Keflex -] 500 mg PO BID #7 capsule Lidocaine 5% Patch [Lidoderm Patch -] 1 patch TP DAILY PRN #7 patch PRN Reason: Pain Lidocaine 5% Patch [Lidoderm -] 1 patch TP DAILY #7 patch - Follow up/Referral Referrals: [facility] [Provider Group] [facility] [Provider Group] - Patient Discharge Instructions Patient Printed Discharge Instructions: DI for Urinary Tract Infection (UTI), DI for Contusion, DI for Hematoma (Bruise), How to Prevent Falls, DI for Closed Head Injury Additional Instructions: your CT scans were negative for bleed or injuries. your X ray shows some degenerative changes but no fracture of your pelvis or lumbar spine, this is most likely a buttock/back strain from your fall. RICE rest ice elevate the affected area Rest, Ice (20 minutes at a time, 3 times a day), Compression (INDY wrap or splint ), Elevation (above the heart). Apply ice to the area for 10 minutes every 2 hours for the first 2 days after the injury to reduce swelling. continue with range of motion exercises, as this will facilitate the healing process; avoid being bed bound and immobile. If you have any worsening of symptoms, including severe pain/swelling/redness/ numbness/changes in sensation/weakness/paralysis or any other concerns please return to the Emergency Department immediately. You were given a copy of the results from any tests performed today in the Emergency Department which have results available. Show these to your doctor(s). Some of the tests we sent may not have results yet so please call or have your doctor call the Emergency Department to follow up on all results. Please continue taking your home medications as directed. Do not use alcohol when taking any medication ( especially antibiotics, tylenol or other pain medication) unless you check with the doctor or pharmacist. -topical lidoderm patch to the area affected, 12 hours on and 12 hours off.. -May take tylenol 650 to 975 mg every 6 hours as needed for mild to moderate pain, available over the counter. This does not require narcotics, as it will precipitate injuries and falls. Please follow up with your primary doctor(s) within the next 1 week, but seek medical care sooner if your symptoms persist or worsen. Please call as soon as possible for an appointment. If you cannot follow up with your doctor please return to the Emergency Department for any urgent issues. Follow up with your primary care physician in 1 week if symptoms persist, or with orthopedics specialists if needed, referrals have been provided. FALL PREVENTION AT HOME WHAT YOU NEED TO KNOW There are many different factors that can increase your risk of falls. Falls can happen any time, but the majority of them occur in the home. Fall prevention includes ways to make your home and other areas safer. It also includes ways you can move more carefully to prevent a fall. Health conditions that cause changes in your blood pressure, vision, or muscle strength and coordination may increase your risk for falls. Medicines, including anesthesia, may increase your risk for falls if they make you dizzy, weak, or sleepy. FALL PREVENTION TIPS Stand or sit up slowly. This may help you keep your balance and prevent falls. Do not walk and talk at the same time. Concentrate on the task of walking and continue the conversation after you've reached a safe place. Wear shoes that fit well and have soles that building associate. Wear shoes both inside and outside. Use slippers with good building associate. Avoid shoes with high heels. Use assistive devices as directed. Your healthcare provider may suggest that you use a cane or walker to help you keep you balance. Be sure you have adequate lighting throughout your house. Keep paths clear. Remove books, shoes and other objects from walkways and stairs. Keep cords for telephones and lamps out of the way so you dont need to walk over them. Remove small rugs or secure them with double-sided tape. This will prevent you from tripping. Use a nightlight when getting out of bed at night. Stay active to maintain overall strength and endurance. Know your limitations. If there is a task you can not complete with ease, do not risk a fall by trying to complete it. Call 911 or have someone else call if: You have fallen and are unconscious You have fallen and cannot move part of your body Contact your healthcare provider if: You have fallen and have pain or a headache You have questions or concerns about your condition or care.
[2019-03-26] MEDS ORDERED: ACETAMINOPHEN 500 MG TABLET (FP) PO ONE (11:54)
[2019-03-26] MEDS ORDERED: DIPHTH,PERTUSS(ACELL),TET 0.5 ML DISP.SYRIN IM ONE ×2 (11:54→12:08)
[2019-03-26] MEDS ORDERED: LIDOCAINE 5% TOPICAL PATCH TP ONE (11:55)
--- NOTE | 2019-03-26 11:58 | PDOC ---
Attending Attestation - Resident Resident Name: Daxa Sandoval - ED Attending Attestation I have performed the following: I have examined & evaluated the patient, The case was reviewed & discussed with the resident, I agree w/resident's findings & plan - HPI HPI: 03/26/19 11:57 Ms. Tolliver is a 76 yo female w/ pmh of urosepsis from obstructing stone, NIDDM , HTN, high cholesterol, on plavix (unknown reason) who presents post fall earlier today, slip and fall on ice while going to car and landed on her lower back and buttock, striking her head. no LOC. c/o back and buttock pain where she landed, c/o occipital head and neck pain, lower back pain. +oiccipital hematoma. able to ambulate after, drove herself here in private vehicle. 03/26/19 12:02 03/26/19 12:41 - Physicial Exam PE: 03/26/19 11:58 Physical exam: General: GCS 15 - NAD, well appearing HEENT: +occipital swelling/hematoma, tender to palp. PERRL, EOMI. Airway intact. No battles sign or raccoon eyes. No e/o ocular. Dentition intact. No e/ o septal hematoma, nasal bridge stable. Neck: neck supple, no midline C spine tenderness or deformity, +paracervical TTP. ROM intact. No anterior mass or crepitus, trachea midline. Resp: Lungs clear bilaterally Chest: no clavicle or chest wall tenderness or crepitus CVS: RRR, 2+ pulses throughout. Abdomen: Abdomen soft, nontender, nondistended. Back: Back + midline spinal tenderness along lower lumbar spine/sacrum, FROM, no stepoffs. no thoracic spine tenderness. +bilateral buttock TTP. MSK: Pelvis stable, Extremities symmetric, FROM in all extrem. Neuro: Alert, oriented appropriately. CN II-XII grossly symmetric and intact. no focal neuro deficits. Sensation and strength intact throughout. Skin: intact, normal color and well perfused. +right finger abrasion, nonbleeding, nontender. 03/26/19 12:39 03/26/19 12:44 - Medical Decision Making 03/26/19 11:58 Vital Signs Temp Pulse Resp BP Pulse Ox 98 F 99 H 18 156/84 100 03/26/19 11:23 03/26/19 11:23 03/26/19 11:23 03/26/19 11:23 03/26/19 11:23 Vital Signs Temp Pulse Resp BP Pulse Ox 98 F 99 H 18 156/84 100 03/26/19 11:23 03/26/19 11:23 03/26/19 11:23 03/26/19 11:23 03/26/19 11:23 ddx ICH, SDH, Epidural hematoma, scalp hematoma/contusion, concussion, compression fx, contusion, msk strain. cervical spine injury/fracture/ subluxation. no prodromal sx, currently c/o back and lumbar pain, extremities FROM, neuro intact, GCS 15. +headache at site of scalp hematoma no cp or sob. vitals wnl, mildly hypertensive, also in pain pain control, lido patch ice to area of hematoma. CT head and C spine. paraspinal tenderness, no midline sx. cxr and pelvic xr, lumbosacral xr. boostrix. 03/26/19 15:54 Lumbar sacral x-ray with normal alignment, no compression fracture noted, spinous processes well aligned, pelvic ring also appears intact, hip joints in appropriate socket, no fractures of the pubic ramus noted, bilateral hips are symmetric no acute fractures are noted. Head CT is negative for intracranial bleed or skull fracture, mild volume loss is noted without intracranial pathology. CT cervical spine with no gross fracture or subluxation, no jumped facets, alignment is satisfactory but there is some moderate degenerative disc disease in C4-C5, patient nontender there Pt to be discharged in stable condition. Patient and family made aware of clinical impression, treatment recommendations and disposition plan, return precautions discussed (including but not limited to new or persistent/worsening symptoms, pain, fevers, or signs of infection, chest pain, respiratory distress , inability to tolerate oral intake, dehydration, syncope, or neurologic changes ). Follow up with PMD and/or specialist as recommended, follow up information provided, take medications as instructed for duration of time. continue with supportive care, avoid triggers and precipitants. All questions answered to patient's satisfaction and expressed understanding and comfort with this. At the time of discharge, the patient is alert, clinically improved, tolerating po and verbalizes understanding of instructions, satisfied with the care received and felt comfortable with the plan. Patient does not suffer from an acute life- threatening medical condition at this time and is safe for outpatient follow- up.
[2019-03-26] MEDS ORDERED: ACETAMINOPHEN 325 MG TABLET (FP) ONE (12:06)
[2019-03-26] MEDS ORDERED: ACETAMINOPHEN 500 MG TABLET (FP) ONE (12:07)
[2019-03-26] MEDS ORDERED: LIDOCAINE 5% TOPICAL PATCH ONE (12:08)
[2019-03-26 16:13] LABS: EPI CELLS 0.3 /HPF (0-5/HPF); HYALINE CASTS 3 /lpf (0-8); URINE APPEARANCE CLEAR; URINE BACTERIA 4721.4 /hpf (NEGATIVE); URINE BILIRUBIN NEGATIVE (NEGATIVE); URINE COLOR YELLOW; URINE GLUCOSE (UA) NEGATIVE (NEGATIVE); URINE KETONE NEGATIVE (NEGATIVE); URINE LEUK ESTERASE 2+ (NEGATIVE); URINE NITRITE NEGATIVE (NEGATIVE); URINE PROTEIN 1+ (NEGATIVE); URINE RBC 1 /hpf (0-4); URINE UROBILINOGEN 0.2 mg/dL (0.2-1.0); URINE WBC 37 /hpf (0-5)
[2019-03-26] MEDS ORDERED: CEPHALEXIN MONOHYDRATE 500 MG CAPSULE (UD) PO ONE (16:28)
[2019-03-26] MEDS ORDERED: CEPHALEXIN MONOHYDRATE 500 MG CAPSULE (UD) ONE (16:44)
[2019-03-26 16:50] VITALS: BP 134/78
[2019-03-26] MEDS ORDERED: LIDOCAINE PATCH REMOVAL MC SCH (22:00)
== END 2019-03-26 16:50 | disposition home or self-care (01) ==
LOC: JER 11:13
DX: S00.03XA Contusion of scalp, initial encounter (principal); S33.5XXA Sprain of ligaments of lumbar spine, initial encounter; Z88.8 Allergy status to other drugs, medicaments and biological substances; Z91.013 Allergy to seafood; E11.9 Type 2 diabetes mellitus without complications; Z85.3 Personal history of malignant neoplasm of breast; I10 Essential (primary) hypertension; E78.00 Pure hypercholesterolemia, unspecified; W00.0XXA Fall on same level due to ice and snow, initial encounter; Y93.89 Activity, other specified; Y92.89 Other specified places as the place of occurrence of the external cause
CPT/HCPCS: 70450-TC; 72100-TC-FY; 72125-TC; 72170-TC-FY; 81003; 87086; 87186; 99282-25

== ENCOUNTER 2020-09-16 17:47 | Emergency (ER) | payer OTHER, MEDICARE ==
[2020-09-16 17:58] VITALS: BP 129/76; PULSE 85; TEMP 99.2; BMI 30.2
[2020-09-16 19:52] LABS: BASO % 0.6 % (0-2.0); EOS % 1.6 % (0-4.5); HEMATOCRIT 35.1 % (32.4-45.2); HEMOGLOBIN 11.9 GM/dL (10.7-15.3); LYMPH % 20.8 % (8-40); MCH 27.4 pg (25.7-33.7); MCHC 33.8 g/dl (32.0-36.0); MEAN PLT VOLUME 8.5 fl (7.5-11.1); MONO % 7.7 % (3.8-10.2); NEUT % 69.3 % (42.8-82.8); PLATELET COUNT 273 K/MM3 (134-434); RBC 4.33 M/mm3 (3.60-5.2); RDW 14.5 % (11.6-15.6); WHITE BLOOD COUNT 9.7 K/mm3 (4.0-10.0)
[2020-09-16 19:58] LABS: INR 1.11 (0.83-1.09); PROTHROMBIN TIME (PATIENT) 13.6 SEC (9.7-13.0)
[2020-09-16 20:00] LABS: ACTIVATED PTT 33.7 SECONDS (25.2-36.5)
[2020-09-16] MEDS ORDERED: ACETAMINOPHEN 325 MG TABLET (FP) PO ONE (20:02)
[2020-09-16 20:14] LABS: ALBUMIN 3.5 g/dl (3.4-5.0); BLOOD UREA NITROGEN 39.5 mg/dL (7-18); CALCIUM 9.5 mg/dL (8.5-10.1)
[2020-09-16 20:17] LABS: CREATININE 1.3 mg/dL (0.55-1.3)
[2020-09-16] MEDS ORDERED: ACETAMINOPHEN 325 MG TABLET (FP) ONE (20:24)
[2020-09-16 20:26] LABS: BILIRUBIN,TOTAL 0.4 mg/dL (0.2-1)
[2020-09-16 20:30] LABS: EPI CELLS 2 /uL (0-25.1); HYALINE CASTS 2 /uL (0-3.1); PH,URINE 5.5 (5.0-8.0); URINE APPEARANCE CLOUDY; URINE BACTERIA >9,000 /uL (0-1359); URINE BILIRUBIN NEGATIVE (NEGATIVE); URINE COLOR YELLOW; URINE GLUCOSE (UA) NEGATIVE (NEGATIVE); URINE KETONE NEGATIVE (NEGATIVE); URINE LEUK ESTERASE 3+ (NEGATIVE); URINE NITRITE NEGATIVE (NEGATIVE); URINE PROTEIN 1+ (NEGATIVE); URINE RBC 13 /uL (0-23.9); URINE UROBILINOGEN 0.2 mg/dL (0.2-1.0); URINE WBC 473 /uL (0-25.8)
== END 2020-09-16 21:03 | disposition home or self-care (01) ==
LOC: JER 17:47 → JERFT 17:47 → JER 21:03
DX: M79.18 Myalgia, other site (principal); R30.0 Dysuria
CPT/HCPCS: 36415; 73523-TC-FY; 80053; 81003; 85025; 85610; 85730; 87086; 87186; 93005; 93010; 99285-25

== ENCOUNTER 2021-05-22 13:30 | Emergency (ER) | payer OTHER, MEDICARE ==
[2021-05-22 13:49] VITALS: BMI 27.4
[2021-05-22] MEDS ORDERED: ACETAMINOPHEN 325 MG TABLET (FP) PO ONE (15:39)
[2021-05-22] MEDS ORDERED: ACETAMINOPHEN 325 MG TABLET (FP) ONE (15:49)
[2021-05-22 18:52] VITALS: BP 136/72; PULSE 76; TEMP 98.6
== END 2021-05-22 18:52 | disposition home or self-care (01) ==
LOC: JERFT 13:30 → JER 13:30 → JERFT 18:52
DX: S09.90XA Unspecified injury of head, initial encounter (principal); S00.33XA Contusion of nose, initial encounter; S80.211A Abrasion, right knee, initial encounter; S80.212A Abrasion, left knee, initial encounter; S63.90XA Sprain of unspecified part of unspecified wrist and hand, initial encounter; W19.XXXA Unspecified fall, initial encounter; Y92.9 Unspecified place or not applicable
CPT/HCPCS: 70450-TC; 70486-TC; 73030-TC-RT-FY; 73110-TC-LT-FY; 73110-TC-RT-FY; 73130-TC-RT-FY; 73560-TC-LT-FY; 73560-TC-RT-FY; 99285-25

== ENCOUNTER 2021-09-03 14:21 | Emergency (ER) | payer OTHER, MEDICARE ==
[2021-09-03 14:55] VITALS: BP 127/69; PULSE 74; TEMP 98.1; BMI 30.2
[2021-09-03] MEDS ORDERED: ACETAMINOPHEN 500 MG TABLET (FP) PO ONE (15:25)
== END 2021-09-03 18:47 | disposition home or self-care (01) ==
LOC: JERFT 14:21
DX: S22.41XA Multiple fractures of ribs, right side, initial encounter for closed fracture (principal); W19.XXXA Unspecified fall, initial encounter
CPT/HCPCS: 70450-TC; 71250-TC; 72131-TC; 74176-TC; 99284-25

== ENCOUNTER 2022-10-02 13:19 | Emergency (ER) | payer OTHER, MEDICARE ==
[2022-10-02 13:26] VITALS: TEMP 98.5; BMI 26.5
[2022-10-02] MEDS ORDERED: ACETAMINOPHEN 500 MG TABLET (FP) PO ONE (15:09)
[2022-10-02] MEDS ORDERED: ACETAMINOPHEN 500 MG TABLET (FP) ONE (15:22)
[2022-10-02 17:54] VITALS: BP 151/83; PULSE 72; RESP 14
== END 2022-10-02 18:17 | disposition home or self-care (01) ==
LOC: JER 13:19
DX: S62.234A Other nondisplaced fracture of base of first metacarpal bone, right hand, initial encounter for closed fracture (principal); W01.0XXA Fall on same level from slipping, tripping and stumbling without subsequent striking against object, initial encounter
CPT/HCPCS: 70450-TC; 72125-TC; 72170-TC-FY; 73030-TC-RT-FY; 73110-TC-RT-FY; 73130-TC-RT-FY; 73502-TC-LT-FY; 73562-TC-LT-FY; 99284-25